=== PATIENT | female | born 1990 | race Caucasian/White ===

== ENCOUNTER 2017-12-03 09:38 | Outpatient (CLI) | payer MEDICARE, OTHER ==
[2017-12-03] MEDS ORDERED: ALBUTEROL SULFATE 2.5 MG/3 ML AMPUL.NEB NEB ONE (09:57)
== END 2017-12-03 09:40 ==
LOC: RT 09:38
PROVIDERS: ATTEND Physician Assistant
DX: J45.909 Unspecified asthma, uncomplicated (principal)
CPT/HCPCS: 94060

== ENCOUNTER 2018-02-24 07:51 | Emergency (ER) | payer MEDICARE, OTHER ==
[2018-02-24] MEDS ORDERED: ALBUTEROL SULFATE 2.5 MG/3 ML AMPUL.NEB NEB ONE (09:42)
[2018-02-24 09:53] VITALS: BP 116/81
[2018-02-24] MEDS ORDERED: IPRATROPIUM/ALBUTEROL SULFATE 3 ML AMPUL.NEB NEB STA (09:59)
[2018-02-24] MEDS ORDERED: methylPREDNISolone ACETATE 80 MG/ML VIAL IM ONE (10:01)
[2018-02-24 10:24] LABS: BASOPHILS % 0.7 (0.0-1.5); EOSINOPHILS % 10.7 % (0.0-6.8); MEAN CORPUSCULAR HEMOGLOBIN 30.6 pg (28.0-34.0); MEAN CORPUSCULAR VOLUME 91.4 fl (80.0-100.0); MONOCYTES % 5.2 % (0.0-11.0); NEUTROPHILS # 3.9 # k/uL (1.4-7.7)
[2018-02-24 10:43] LABS: eGFR (African) > 60; eGFR (Non-African) > 60
--- NOTE | 2018-02-24 10:57 | Diagnostic Imaging Report ---
ELHAM RAMSEY (VOICE TEACHER) - ER [facility] [address] [id number] Report Submission Date: Feb 24, 2018 10:48:02 AM CDT Patient Study Name: MAC ALEMAN Date: Feb 24, 2018 10:24:41 AM CDT Modality Type: DX Gender: F Description: CHEST : 88 Institution: [facility] Physician: ELHAM RAMSEY (VOICE TEACHER) - ER PA and lateral chest Clinical history: Cough since this morning. Findings: Examination of the chest in PA and lateral views with no prior films for comparison demonstrates the lungs to be clear. Cardiovascular and mediastinal silhouettes are normal. The bony thorax is intact. Impression: 1. Negative chest. Electronically signed on Feb 24, 2018 10:48:02 AM CDT by: Zachary MAC
--- NOTE | 2018-02-24 11:01 | ED Physician Documentation ---
Dyspnea - HISTORIAN Historian: patient - HPI Stated Complaint: cough, congestion Chief Complaint: Dyspnea Onset: days ago (3) Duration: continues in ED, intermittent Initiating Event: upper respiratory illness Severity: moderate Exacerbated By: coughing Associated Symptoms: denies: chills, fever, sweating, chest pain, chest discomfort, bloody cough, productive cough, heart racing, leg pain, dizziness, light-headedness, face tingling, muscle spasms Further Comments: yes (27 year old female presents with complaint of SOB and congestion. Patient states she is out of her albuterol nebulizer medicine. Denies fever or chest pain.) - ROS CONST: no problems EYES/ENT: nasal drainage, nasal congestion. denies: problems with vision, sore throat GI/: none NEURO/PSYCH: denies: headache MS/SKIN/LYMPH: none - PAST HX Lung Disease: asthma Cardiac Disease: none PE Risk Factors: none Allergies/Adverse Reactions: Allergies Allergy/AdvReac Type Severity Reaction Status Date / Time No Known Drug Intolerances Allergy Verified 02/24/18 09:47 Home Medications: Ambulatory Orders Medication Instructions Recorded Albuterol Sulfate [Proair HFA] 1 inh IH Q4H PRN #1 hfa.aer.ad 02/24/18 Albuterol Sulfate [Ventolin HFN] 2.5 mg NEB Q4 PRN #25 ml 02/24/18 Azithromycin [Zithromax] 250 mg PO DAILY #6 tablet 02/24/18 - SOCIAL HX Smoking History: non-smoker - FAMILY HX Family History: denies: none - VITAL SIGNS Vital Signs: Vital Signs Temp Pulse Resp BP Pulse Ox 98.7 F 79 16 116/81 96 02/24/18 07:52 02/24/18 07:52 02/24/18 07:52 02/24/18 07:52 02/24/18 07:52 - REVIEWED ASSESSMENTS Nursing Assessment Reviewed: Yes Vitals Reviewed: Yes Progress - Progress Progress: Wheezing improved after albuterol nebulizer, Will repeat with duoneb. Medicated with depo-medrol IM while in Er. Wheezing resolved after duoneb. Reviewed lab and chest xray. EOS elevated. Reviewed discharge instructions and medication instructions with patient and spouse. Questions answered. ED Results Lab/Radiology - Lab Results Lab Results: Lab Results 02/24/18 02/24/18 10:15 10:15 WBC 7.80 K/ul K/ul (4.00-12.00) RBC 5.29 M/ul H M/ul (3.90-5.20) Hgb 16.2 g/dL H g/dL (12.0-16.0) Hct 48.4 % H % (34.5-46.5) MCV 91.4 fl fl (80.0-100.0) MCH 30.6 pg pg (28.0-34.0) MCHC 33.5 g/dL g/dL (30.0-36.0) RDW 12.8 % % (11.3-14.3) Plt Count 245 K/mm3 K/mm3 (130-400) Neut % (Auto) 49.6 % % (39.0-79.0) Lymph % (Auto) 31.2 % % (16.0-50.0) Williams % (Auto) 5.2 % % (0.0-11.0) Eos % (Auto) 10.7 % H % (0.0-6.8) Baso % (Auto) 0.7 (0.0-1.5) Neut # (Auto) 3.9 # k/uL # k/uL (1.4-7.7) Lymph # (Auto) 2.4 # k/uL # k/uL (0.6-4.0) Williams # (Auto) 0.4 # k/uL # k/uL (0.0-0.9) Eos # (Auto) 0.8 # k/uL H # k/uL (0.0-0.6) Baso # (Auto) 0.1 # k/uL # k/uL (0.0-0.5) Reactive Lymphs % 2.6 % % (0.0-5.0) Reactive Lymphs # 0.2 # k/uL # k/uL (0.0-0.8) Sodium 141 mmol/L mmol/L (136-145) Potassium 4.1 mmol/L mmol/L (3.5-5.1) Chloride 106 mmol/L mmol/L (98-107) Carbon Dioxide 24 mmol/L mmol/L (22-30) BUN 14 mg/dL mg/dL (7-17) Creatinine 0.70 mg/dL mg/dL (0.52-1.04) Estimated Creat Clear 215 Est GFR ( Amer) > 60 (60 - ) Est GFR (Non-Af Amer) > 60 (60 - ) Glucose 92 mg/dL mg/dL (74-106) Calcium 9.9 mg/dL mg/dL (8.4-10.2) Total Bilirubin 0.4 mg/dL mg/dL (0.2-1.3) AST 17 U/L U/L (15-46) ALT 27 U/L U/L (13-69) Alkaline Phosphatase 72 U/L U/L (38-126) Total Protein 8.6 g/dL H g/dL (6.3-8.2) Albumin 4.8 g/dL g/dL (3.5-5.0) - Radiology Radiology Impressions: PA and lateral chest Clinical history: Cough since this morning. Findings: Examination of the chest in PA and lateral views with no prior films for comparison demonstrates the lungs to be clear. Cardiovascular and mediastinal silhouettes are normal. The bony thorax is intact. Impression: 1. Negative chest. Electronically signed on Feb 24, 2018 10:48:02 AM CDT by: Zachary Herring - Orders Orders: ED Orders Category Date Time Status CHEST 2VIEW [RAD] Stat Exams 02/24/18 09:58 Completed CBC/PLATELET/DIFF Stat Lab 02/24/18 10:15 Completed CMP Stat Lab 02/24/18 10:15 Completed Albuterol Sulfate [Ventolin] Med 02/24/18 09:42 Discontinued 2.5 mg NEB NOW ONE Ipratropium/Albuterol Sulfate [Duoneb] Med 02/24/18 09:59 Discontinued 3 ml NEB STAT STA methylPREDNISolone ACETATE [Depo-Medrol] Med 02/24/18 10:01 Discontinued 80 mg IM NOW ONE Dyspnea Physical Exam - EXAM General Appearance: mild distress EENT: eye inspection normal, ENT inspection normal, pharynx normal, no signs of dehydration, DARSHANA, no nystagmus, TM's nml Respiratory: no resp. distress, no pain on inspiration, speaks full sentences, wheezes (inspiratory and expiratory wheezing) CVS: reg. rate & rhythm, no murmur, no gallop, no friction rub, pulses full, pulses equal Abdomen: non-tender, no organomegaly, no distention, no ascites Skin: color nml, no rash, warm, nml palp., dry Extremities: non-tender, normal range of motion, no evidence of injury, no edema , J, CRISIS THERAPIST Neuro/Psych: oriented x3, CN's nml as tested, motor nml, sensation nml, mood/ affect nml Discharge Clincal Impression: Asthma exacerbation Qualifiers: Asthma severity: mild Asthma persistence: intermittent Qualified Code(s): J45.21 - Mild intermittent asthma with (acute) exacerbation Prescriptions: Albuterol Sulfate [Ventolin HFN] 2.5 mg NEB Q4 PRN #25 ml PRN Reason: Wheezing Albuterol Sulfate [Proair HFA] 1 inh IH Q4H PRN #1 hfa.aer.ad PRN Reason: Wheezing Azithromycin [Zithromax] 250 mg PO DAILY #6 tablet Referrals: Jimy Son MD [Primary Care Provider] - 2 Days Additional Instructions: Use your nebulizer every 4 hours as needed. Keep your inhaler in your purse and with you at all times in case of asthma exacerbation. 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 Condition: Stable Disposition: HOME, SELF-CARE Decision to Admit: NO Decision Time: 11:01
== END 2018-02-24 11:09 | disposition home or self-care (01) ==
LOC: ED 07:51
DX: J45.21 Mild intermittent asthma with (acute) exacerbation (principal)
CPT/HCPCS: 71046; 80053; 85025; J1040; 94640; 96372; 99284

== ENCOUNTER 2018-05-21 11:36 | Outpatient (CLI) | payer MEDICARE, OTHER ==
[2018-05-21 12:53] LABS: MEAN CORPUSCULAR HEMOGLOBIN 29.3 pg (28.0-34.0)
--- NOTE | 2018-05-21 17:02 | Diagnostic Imaging Report ---
ENDY DURBIN [facility] [address] [facility] [address] [place], [place]. [address] Report Submission Date: May 21, 2018 12:19:51 PM CDT Patient Study Name: MAC ALEMAN Date: May 21, 2018 11:54:40 AM CDT Modality Type: DX Gender: F Description: CHEST : 88 Institution: [facility] Physician: ENDY DURBIN Examination: PA and lateral chest. History: Evaluate lung arciniega. COUGH AND WHEEZING IN CHEST X 2 WEEKS. PT STATES SHE HAS ASTHMA AND IS NOT A SMOKER. (Hx) Comparison exam: 24 February 2018 Findings: PA and lateral views of the chest demonstrates a normal cardiac and mediastinal silhouette. No focal infiltrate. No blunting of the costophrenic margins. Osseous structures are appropriate for age. Impression: No acute pulmonary process. Electronically signed on May 21, 2018 12:19:51 PM CDT by: Justin MAC
== END 2018-05-21 11:38 ==
LOC: LAB 11:36
PROVIDERS: ATTEND Nurse Practitioner Family
DX: R06.2 Wheezing (principal); J40 Bronchitis, not specified as acute or chronic
CPT/HCPCS: 36415; 71046; 85027